=== PATIENT | female | born 1955 | race Caucasian/White ===

== ENCOUNTER → 2016-08-31 | Outpatient (CLI) | payer SELFPAY ==
--- NOTE | 2016-08-31 18:19 | Diagnostic Imaging Report ---
INDICATION: Postmenopausal bleeding. COMPARISON: None. TECHNIQUE: Transpelvic and transvaginal sonogram was performed. FINDINGS: The endometrium has significantly abnormal prominent heterogeneous appearance. There is small amount of fluid within the endometrial canal. There is suggestion of soft tissue filling defect extending into the central portion of the endometrium. Color flow images show vascularity at this area. Endometrium measures approximately 13 mm in thickness. There is suboptimal differentiation of the endometrial stripe from the surrounding myometrium as well. Remainder of the uterine myometrium also has a heterogeneous echogenic appearance. Uterus measures 7.8 cm in length by 8.9 cm transversely by 4.8 cm in AP dimension. No adnexal masses or free fluid are identified. Ovaries cannot be adequately identified on either side. IMPRESSION: 1. Significantly abnormal appearance of the endometrial stripe as described above. Findings are concerning for endometrial mass/polyp. 2. Heterogeneous appearance of the uterine myometrium. This can be seen with adenomyosis. Local invasion of malignant endometrial process however should also be considered. Surgical consultation is strongly encouraged. Dictated by: Dictated on workstation # [id number]
== END ==
LOC: RAD 16:25
PROVIDERS: ATTEND Obstetrics & Gynecology
DX: N95.0 Postmenopausal bleeding (principal)
CPT/HCPCS: 76830; 76856

== ENCOUNTER 2016-09-23 08:07 | Day surgery (SDC) | payer OTHER ==
[~2016-09-23] VITALS: Ht 167.6 cm; Wt 81.2 kg
[2016-09-23 08:30] VITALS: BP 144/67
[2016-09-23 08:41] LABS: BASOPHILS % (AUTO) 1 % (0-10); EOSINOPHILS # (AUTO) 0.2 10^3/uL (0.0-0.3); EOSINOPHILS % (AUTO) 5 % (0-10); LYMPHOCYTES # (AUTO) 1.5 X 10^3 (1.0-4.0); LYMPHOCYTES % (AUTO) 31 % (12-44); MEAN CORPUSCULAR HEMOGLOBIN 30 PG (25-34); MEAN CORPUSCULAR HGB CONC 34 G/DL (32-36); MEAN CORPUSCULAR VOLUME 88 FL (80-99); MEAN PLATELET VOLUME 8.8 FL (7.4-10.4); MONOCYTES # (AUTO) 0.3 X 10^3 (0.0-1.0); MONOCYTES % (AUTO) 6 % (0-12); NEUTROPHILS # (AUTO) 2.7 X 10^3 (1.8-7.8); NEUTROPHILS % (AUTO) 58 % (42-75); PLATELET COUNT 287 10^3/uL (130-400); RED BLOOD COUNT 4.44 10^6/uL (4.35-5.85); RED CELL DISTRIBUTION WIDTH 13.3 % (10.0-14.5); WHITE BLOOD COUNT 4.7 10^3/uL (4.3-11.0)
[2016-09-23] MEDS ORDERED: PRAM0.12 PO (09:05)
[2016-09-23] MEDS ORDERED: PSEU-137 PO (09:05)
[2016-09-23] MEDS ORDERED: SUMA100T2 PO (09:05)
[2016-09-23] MEDS ORDERED: IBUP-15 PO (09:05)
--- NOTE | 2016-09-23 09:14 | Progress Note-Pre Operative ---
Pre-Operative Progress Note H&P Reviewed The H&P was reviewed, patient examined and no changes noted. Date Seen by Provider: Sep 23, 2016 Time Seen by Provider: 09:10 Date H&P Reviewed: Sep 23, 2016 Time H&P Reviewed: 09:10 Pre-Operative Diagnosis: PMB, Atypical endometrial cells on office EMB SCOOBY VEGA DO Sep 23, 2016 9:14 am
[2016-09-23] MEDS ORDERED: LACTATED RINGERS 1,000 ML IV PRN (09:15)
[2016-09-23] MEDS ORDERED: BUPIVACAINE 0.25% 30 ML (SENSORCAINE) VIAL ONE (10:32)
[2016-09-23] MEDS ORDERED: LACTATED RINGERS 1,000 ML IV ONE (10:38)
[2016-09-23] MEDS ORDERED: fentaNYL INJECTION 100 MCG/2 ML AMP ONE (10:38)
[2016-09-23] MEDS ORDERED: proPOfol 200 MG/20 ML (DIPRIVAN) VIAL IV ONE (10:38)
[2016-09-23] MEDS ORDERED: MIDAZOLAM 2 MG/2 ML (VERSED) VIAL ONE (10:38)
[2016-09-23] MEDS ORDERED: SEVOFLURANE (ULTANE) 15 ML INHAL SOLN ONE (10:38)
[2016-09-23] MEDS ORDERED: LIDOCAINE PF 0.5% 50 ML (XYLOCAINE) VIAL ONE (10:38)
[2016-09-23] MEDS ORDERED: ONDANSETRON 4 MG/2 ML (SDV) Z0FRAN ONE (10:39)
[2016-09-23] MEDS ORDERED: DEXAMETHASONE PF 10 MG/ML (DECADRON) VIAL ONE (10:39)
[2016-09-23] MEDS ORDERED: D5 LR IV SOLUTION 1,000 ML IV SCH (11:28)
[2016-09-23] MEDS ORDERED: ONDANSETRON 4 MG/2 ML (SDV) Z0FRAN IVP PRN ×2 (11:30→11:45)
[2016-09-23] MEDS ORDERED: KETOROLAC 30 MG/ML VIAL IVP ONE (11:30)
[2016-09-23] MEDS ORDERED: IBUP-1773 PO (11:33)
[2016-09-23] MEDS ORDERED: ACET-789 PO (11:33)
--- NOTE | 2016-09-23 11:34 | Discharge Inst-Women's Service ---
Discharge Inst-Women's Serv Depart Medication/Instructions New, Converted or Re-Newed RX: RX on Chart Consults/Follow Up Additional Follow Up: Yes Orders/Referrals Dr. Vega in 7-10 days to discuss results Activity Activity: Activity as Tolerated Driving Instructions: You May Drive NO SMOKING: NO SMOKING Nothing Inside Vagina: No Douching, No [place], No Tampons Diet Discharge Diet: No Restrictions Symptoms to Report to : Bleeding Excessive, Pain Increased, Fever Over 101 Degrees F, Vaginal Bleeding Increase, Questions/Concerns For Any Problems or Questions: Contact Your Physician Skin/Wound Care Bathing Instructions: Shower (x 1 week) SCOOBY VEGA DO Sep 23, 2016 11:34
--- NOTE | 2016-09-23 11:35 | Progress Note-Post Operative ---
Post-Operative Progess Note Surgeon (s)/Workforce Investment Act Career Manager (s) Surgeon SCOOBY VEGA DO Workforce Investment Act Career Manager: none Pre-Operative Diagnosis PMB, Atypical endometrial cells on office EMB Post-Operative Diagnosis same Procedure & Operative Findings Date of Procedure 09/23/16 Procedure Performed/Findings D and C Anesthesia Type LMA-Gen Estimated Blood Loss Estimated blood loss (mL): min Specimens/Packing Specimens Removed endometrial curetting SCOOBY VEGA DO Sep 23, 2016 11:35 am
[2016-09-23] MEDS ORDERED: morphine INJ 10 MG/ML 1ML (SYR OR VIAL) IVP PRN (11:45)
[2016-09-23 12:35] VITALS: BP 124/83
[2016-09-23 13:05] VITALS: BP 124/72
[2016-09-23 13:35] VITALS: BP 127/81
[2016-09-23 14:14] VITALS: BP 127/81
--- NOTE | 2016-09-24 00:50 | OPERATIVE REPORT ---
DATE OF SERVICE: PREOPERATIVE DIAGNOSES: 1. This is a 61-year-old female with atypical cells on office endometrial biopsy, inadequate for full evaluation. 2. Postmenopausal bleeding. POSTOPERATIVE DIAGNOSES: 1. This is a 61-year-old female with atypical cells on office endometrial biopsy, inadequate for full evaluation. 2. Postmenopausal bleeding. PROCEDURE: Dilation and curettage. SURGEON: Scooby Vega DO ANESTHESIA: LMA, general. ESTIMATED BLOOD LOSS: Minimal. URINE OUTPUT: 30 mL, clear drained at the end of the procedure. CRYSTALLOIDS: 500 mL of Lactated Ringer solution. FINDINGS: Dense, thickened amount of endometrial tissue, grossly normal appearing cervix, vaginal mucosa and external female genitalia. SPECIMENS SENT: Endometrial curettings. INDICATIONS FOR PROCEDURE: This 61-year-old female was initially a consultation in my office for postmenopausal bleeding. She also was noted to have an abnormal Pap smear, underwent colposcopy with EMB. Colposcopy revealed low grade dysplasia; however, endometrial biopsy revealed significant amounts of atypical cells concerning pathology for possible underlying carcinoma. The pathologist was requesting further tissue for evaluation. I discussed this with the patient and discussed proceeding with D and C under anesthesia. The risks of this procedure discussed with the patient in detail including risks of bleeding, infection, damaging the uterus, perforation, need for blood transfusion and even . This was all reviewed with the patient in the preoperative area. After all the questions were answered, consent was obtained and the patient was taken to the operating room. OPERATIVE REPORT IN DETAIL: Once in the operating room, anesthesia was found to be adequate. She was placed in dorsal lithotomy position, prepped and draped in the normal sterile fashion. She was first examined under anesthesia. The uterus was slightly enlarged, but freely mobile. No adnexal fullness and mass was appreciated on bimanual examination. A weighted speculum was inserted into the patient's vagina. A right angle retractor was used to visualize the cervix. It was grasped at 2 o'clock position using a long Allis clamp. I then performed a paracervical block at 3 and 9 o'clock positions on the cervix using 0.25% Marcaine, 5 mL were used at each injection site. Care was taken to aspirate before injecting. I then gently sounded uterine cavity depth, was sound to be 8 cm and gently dilated the cervix using Hegar dilators to allow passage of a medium-sized endometrial curette. I then made several passes to the endometrial cavity using medium-sized endometrial curette and collected moderate to large amount of endometrial tissues, this was sent for permanent section. Afterwards, she had no active bleeding noted. All other instruments were removed from the patient's vagina. The patient tolerated the procedure well, sent to recovery room in stable condition. Lap, sponge, needle counts are correct at the end of the procedure. Instrument counts were correct as well. The bladder has been drained using a straight catheterization. Job ID: [id number] DocumentID: [id number] Dictated Date: 09/23/2016 11:42:24 Full Time Babysitter Date: 09/23/2016 23:41:50 Dictated By: SCOOBY VEGA DO
--- OUTSIDE RECORDS SUMMARY | 2016-09-27 10:35 | XMS REPORT | Continuity of Care Document ---
Author Author [facility] Organization [facility] Address Unknown Phone Unavailable Allergies Active Description Code Type Severity Reaction Onset Reported/Identified Relationship to Patient Clinical Status Yes propoxyphene [id number] Drug Allergy Moderate NAUSEA 09/23/2016 Medications Problems Date Dx Coded Attending Type Code Diagnosis Diagnosed By 09/19/2015 RANJAN DORADO DO Ot M54.2 CERVICALGIA 10/02/2015 RANJAN DORADO DO Ot M54.2 CERVICALGIA 09/03/2016 FENECH DO, SCOOYB S Ot N95.0 POSTMENOPAUSAL BLEEDING 09/03/2016 FENECH DO, SCOOBY S Ot N95.0 POSTMENOPAUSAL BLEEDING 09/09/2016 FENECH DO, SCOOBY S Ot N95.0 POSTMENOPAUSAL BLEEDING 09/22/2016 FENECH DO, SCOOBY S Ot N95.0 POSTMENOPAUSAL BLEEDING 09/22/2016 FENECH DO, SCOOBY S Ot N95.0 POSTMENOPAUSAL BLEEDING 09/23/2016 FENECH DO, SCOOBY S Ot N95.0 POSTMENOPAUSAL BLEEDING Procedures Results Test Result Range Complete blood count (CBC) with automated white blood cell (WBC) differential - 09/23/16 08:30 Blood leukocytes automated count (number/volume) 4.7 10*3/ uL 4.3-11.0 Blood erythrocytes automated count (number/volume) 4.44 10*6 /uL 4.35-5.85 Venous blood hemoglobin measurement (mass/volume) 13.2 g/dL 11.5-16.0 Blood hematocrit (volume fraction) 39 % 35-52 Automated erythrocyte mean corpuscular volume 88 [foz_us] 80-99 Automated erythrocyte mean corpuscular hemoglobin (mass per erythrocyte) 30 pg 25-34 Automated erythrocyte mean corpuscular hemoglobin concentration measurement ( mass/volume) 34 g/dL 32-36 Automated erythrocyte distribution width ratio 13.3 % 10.0-14.5 Automated blood platelet count (count/volume) 287 10*3/uL 130-400 Automated blood platelet mean volume measurement 8.8 [foz_us ] 7.4-10.4 Automated blood neutrophils/100 leukocytes 58 % 42-75 Automated blood lymphocytes/100 leukocytes 31 % 12-44 Blood monocytes/100 leukocytes 6 % 0-12 Automated blood eosinophils/100 leukocytes 5 % 0-10 Automated blood basophils/100 leukocytes 1 % 0-10 Blood neutrophils automated count (number/volume) 2.7 10*3 1.8-7.8 Blood lymphocytes automated count (number/volume) 1.5 10*3 1.0-4.0 Blood monocytes automated count (number/volume) 0.3 10*3 0.0-1.0 Automated eosinophil count 0.2 10*3/uL 0.0-0.3 Automated blood basophil count (count/volume) 0.0 10*3/uL 0.0-0.1 Blood type T Indirect antibody screen panel - 09/23/16 08:30 ABO+Rh group OP NRG Transfusion band number [id number] NRG Blood group antibody screen NEGATIVE NRG Methicillin resistant Staphylococcus aureus (MRSA) screening culture - 08:30 Methicillin resistant Staphylococcus aureus (MRSA) screening culture NEG NRG Encounters ACCT No. Visit Date/Time Discharge Status Pt. Type Provider Facility Loc./Unit Complaint [id number] 09/23/2016 08:07:00 2016 14:14:00 DIS Outpatient SCOOBY VEGA DO [facility] SDC ABNORMAL UTERINE BLEEDING, POSTMENAPAUSAL BLEEDING [id number] 09/25/2015 11:15:00 2015 09:14:00 DIS Outpatient RANJAN DORADO DO [facility] REHAB CERVICAL PAIN/SPASM W L ARM RADICULOPATHY/PAIN [id number] 09/22/2016 13:00:00 PEN Preadmit SCOOBY VEGA DO [facility] PREOP D C [id number] 08/31/2016 16:25:00 ACT Outpatient SCOOBY VEGA DO [facility] RAD POST MENOPAUSAL BLEEDING
== END 2016-09-23 14:14 | disposition home or self-care (01) ==
LOC: SDC 08:07
PROVIDERS: ATTEND Obstetrics & Gynecology
DX: C54.1 Malignant neoplasm of endometrium (principal); N95.0 Postmenopausal bleeding
CPT/HCPCS: 36415; 85025; 86850; 86900; 86901; 87081; 94664

== ENCOUNTER 2017-04-11 18:23 | Emergency (ER) | payer MEDICAID, OTHER ==
[~2017-04-11] VITALS: Ht 167.6 cm; Wt 81.6 kg
[~2017-04-11 18:23] MED LIST: ACET-789 PO; IBUP-16 PO; IBUP-1773 PO; PRAM0.12 PO; PSEU-137 PO; SUMA100T2 PO
--- NOTE | 2017-04-11 19:13 | ED EENT ---
History of Present Illness General Chief Complaint: Ear Problems Stated Complaint: RT EAR PAIN Source: patient Exam Limitations: no limitations History of Present Illness Time seen by provider: 19:11 Initial Comments To ER with right ear pain that radiates into the right neck. This began a few days ago. She saw [facility] this morning and was given a prescription for Neosporin ear drops and amoxicillin. However she rates her pain at 9-1/2 out of 10 in the right ear and she was not given anything for pain. She just had her second round of chemotherapy for uterine cancer. 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 Timing/Duration: this morning Severity: moderate Location: ear (R) Allergies and Home Medications Allergies Coded Allergies: propoxyphene (Verified Adverse Reaction, Intermediate, NAUSEA, 09/23/16) Home Medications Acetaminophen with Codeine 1 Each Tablet, 1 EACH PO Q4H PRN for PAIN-SEVERE, #30 Prescribed by: SCOOBY VEGA on 09/23/16 1133 Amoxicillin/Potassium Clav 1 Each Tablet, 1 EACH PO BID, #20 Prescribed by: JUDITH CAIN on 04/11/17 195 Ibuprofen 600 Mg Tablet, 600 MG PO Q6H, #60 Ref 0 Prescribed by: SCOOBY VEGA on 09/23/16 1133 Ofloxacin 10 Ml Drops, 10 DROPS OT BID for 7 Days Prescribed by: JUDITH CAIN on 04/11/17 194 Oxycodone HCl/Acetaminophen 1 Each Tablet, 1 EACH PO Q4H PRN for PAIN-MODERATE, #30 Prescribed by: JUDITH CAIN on 04/11/171955 Pramipexole 0.125 Mg Tablet, 0.125 MG PO HS, (Reported) Pseudoephedrine HCl 30 Mg Tablet, 60 MG PO DAILY, (Reported) Sumatriptan Succinate 100 Mg Tablet, 100 MG PO PRN, (Reported) Review of Systems Constitutional: see HPI Eyes: No Symptoms Reported Ears: See HPI, Pain, Denies Tinnitus, Denies Bloody Discharge, Denies Clear Discharge, Denies Purulent Discharge Nose: no symptoms reported Mouth: no symptoms reported Throat: no symptoms reported Respiratory: no symptoms reported Cardiovascular: no symptoms reported Musculoskeletal: no symptoms reported Skin: no symptoms reported Neurological: No Symptoms Reported Hematologic/Lymphatic: No Symptoms Reported Immunological/Allergic: no symptoms reported Past Elahvaj-Vlnkta-Tuvzeo Hx Patient Social History Alcohol Beverage of Choice: Wine Recent Foreign Travel: No Contact w/Someone Who Travel: No Recent Hopitalizations: No Seasonal Allergies Seasonal Allergies: Yes Surgeries Surgeries: Appendectomy, Section, Gallbladder, Tonsillectomy Reproductive System Hx Reproductive Disorders: Yes Sexually Transmitted Disease: No HIV/AIDS: No Female Reproductive Disorders: Menstrual Problems DIRECTOR OPERATIONS History: Menopausal Physical Exam Vital Signs Vital Sign - Last 12Hours 04/11/17 19:07 Temp 99.0 Pulse 102 Resp 20 B/P (MAP) 142/80 (100) Pulse Ox 98 O2 Delivery Room Air General Appearance: WD/WN, no apparent distress Eyes: bilateral eye normal inspection, bilateral eye PERRL, bilateral eye EOMI Ears: bilateral ear auricle normal, bilateral ear other (there appears to be cerumen impacted against the right tympanic membrane. The external ear canal is very tender but without drainage or obvious swelling. There is no rash to the external neck. Because she is immunosuppressed I will put her on quinolone eardrops to cover for pseudomonas infection. Ultram for pain control. Her right pupil is about 1-2 mm larger than her left. She denies any history of this before. I will proceed with a CT scan of the head because she does report intermittent headaches. There is no tenderness to palpation over the mastoid process nor is there any fluctuance or erythema) Mouth/Throat: normal mouth inspection, pharynx normal Neck: non-tender, full range of motion Cardiovascular: regular rate, rhythm, no murmur Respiratory: normal breath sounds, no respiratory distress Gastrointestinal: normal bowel sounds, non tender, soft Neurologic/Psychiatric: alert, normal mood/affect, oriented x 3 Skin: normal color, warm/dry Progress/Results/Core Measures Results/Orders My Orders Orders - JUDITH CAIN APRN Ct Head Wo (04/11/17 19:11) Tramadol Tablet (Ultram Tablet) (04/11/17 19:15) Acyclovir Capsule/Tablet (Zovirax Caps (04/11/17 19:45) Medications Given in ED Current Medications Medications Dose Ordered Sig/Mary Route Start Time Stop Time Status Last Admin Dose Admin Tramadol HCl 50 mg ONCE ONCE PO 04/11/17 19:15 04/11/17 19:16 DC 04/11/17 19:16 50 MG Vital Signs/I&O Vital Sign - Last 12Hours 04/11/17 19:07 Temp 99.0 Pulse 102 Resp 20 B/P (MAP) 142/80 (100) Pulse Ox 98 O2 Delivery Room Air Diagnostic Imaging Diagonstic Imaging: CT Comments NAME: JAMIR [facility]SON [facility] REC#: [id number] PT STATUS: REG ER : 1955 PHYSICIAN: JUDITH CAIN INTELLIGENCE AGENT ADMIT DATE: 04/11/17/ER Signed Date of Exam:04/11/17 CT HEAD WO PROCEDURE: CT head without contrast. TECHNIQUE: Multiple contiguous axial images were obtained through the brain without the use of intravenous contrast. INDICATION: Right ear pain with recent diagnosis of swimmer's ear. No comparison is available. FINDINGS: There is no CT evidence of acute intracranial hemorrhage. There is no intracranial mass effect or shift. There is no hydrocephalus. There is no abnormal extra-axial fluid collection. Lott-white differentiations are preserved. Posterior fossa unremarkable. Thin section imaging through the calvarium and temporal bones demonstrates abnormal partial opacification of the right-sided mastoids and abnormal density demonstrated within the middle ear predominantly within the hypotympanum. There also appears to be some soft tissue thickening within the bony aspect of the right external auditory canal. The morphology of the inner ear structures appear normal. The left temporal bone is normal. The left mastoids and middle ear are clear. Paranasal sinuses are remarkable for chronic appearing sinusitis within the right sphenoid sinus. The sinuses completely opacified. The orbital contents unremarkable. IMPRESSION: 1. No CT evidence of an acute intracranial abnormality. 2. Abnormal appearance of the right temporal bone. There are partially opacified right-sided mastoids. There is abnormal opacification demonstrated of the middle ear. There also appears to be some soft tissue thickening within the external auditory canal. While the external auditory canal findings could relate to swimmer's ear, the abnormality within the middle ear and mastoids is more suspect for an otitis. There are no bone erosions evident to suggest cholesteatoma. 3. Chronic right sphenoid sinusitis. Dictated by: Dictated on workstation # [id number] Dict: 04/11/171935 Trans: 04/11/17 1947 SARAH [id number] Interpreted by: IMER BROWER MD Electronically signed by: IMER BROWER MD 04/11/171946 Departure Communication (Admissions) Progress Notes Did speak with Vinayak Knox nurse practitioner with Dr. Pierre from ear nose and throat. My question was in regards to any different preference of antibiotics given her immunosuppressed status. She would change to Augmentin, continue the eardrops follow-up with them in the clinic. 2011 in regards to the pupillary dilation patient reports that she actually had a scopolamine patch on behind the right ear and took this off just before coming to the ER.- Impression Impression: Primary Impression: Otitis externa Additional Impression: Immunosuppressed due to chemotherapy Disposition: HOME, SELF-CARE Condition: Stable Departure-Patient Inst. Decision time for Depature: 19:18 Referrals: SCOOBY PIERRE MD NO,LOCAL PHYSICIAN (PCP) Primary Care Physician Patient Instructions: Outer Ear Infection (DC) Add. Discharge Instructions: Stop your current ear drops and antibiotics and start the new ones. Call Dr. Pierre's clinic tomorrow to make an appointment to be seen. Scripts Oxycodone HCl/Acetaminophen (Percocet 5-325 mg Tablet) 1 Each Tablet 1 EACH PO Q4H Y for PAIN-MODERATE, #30 TAB Prov: JUDITH CAIN INTELLIGENCE AGENT 04/11/17 Amoxicillin/Potassium Clav (Augmentin 875-125 Tablet) 1 Each Tablet 1 EACH PO BID, #20 TAB Prov: JUDITH CAIN APRN 04/11/17 Ofloxacin (Floxin) 10 Ml Drops 10 DROPS OT BID for 7 Days, DROPS Prov: JUDITH CAIN APRN 04/11/17 Copy Copies To 1: SCOOBY PIERRE MD, PETER J APRN Apr 11, 2017 19:13
[2017-04-11] MEDS ORDERED: OFLO10DR24 OT (19:43)
[2017-04-11] MEDS ORDERED: ACYC800T PO (19:43)
[2017-04-11] MEDS ORDERED: ACYCLOVIR 400 MG TABLET (ZOVIRAX) PO SCH (19:45)
--- NOTE | 2017-04-11 19:46 | Diagnostic Imaging Report ---
PROCEDURE: CT head without contrast. TECHNIQUE: Multiple contiguous axial images were obtained through the brain without the use of intravenous contrast. INDICATION: Right ear pain with recent diagnosis of swimmer's ear. No comparison is available. FINDINGS: There is no CT evidence of acute intracranial hemorrhage. There is no intracranial mass effect or shift. There is no hydrocephalus. There is no abnormal extra-axial fluid collection. Lott-white differentiations are preserved. Posterior fossa unremarkable. Thin section imaging through the calvarium and temporal bones demonstrates abnormal partial opacification of the right-sided mastoids and abnormal density demonstrated within the middle ear predominantly within the hypotympanum. There also appears to be some soft tissue thickening within the bony aspect of the right external auditory canal. The morphology of the inner ear structures appear normal. The left temporal bone is normal. The left mastoids and middle ear are clear. Paranasal sinuses are remarkable for chronic appearing sinusitis within the right sphenoid sinus. The sinuses completely opacified. The orbital contents unremarkable. IMPRESSION: 1. No CT evidence of an acute intracranial abnormality. 2. Abnormal appearance of the right temporal bone. There are partially opacified right-sided mastoids. There is abnormal opacification demonstrated of the middle ear. There also appears to be some soft tissue thickening within the external auditory canal. While the external auditory canal findings could relate to swimmer's ear, the abnormality within the middle ear and mastoids is more suspect for an otitis. There are no bone erosions evident to suggest cholesteatoma. 3. Chronic right sphenoid sinusitis. Dictated by: Dictated on workstation # [id number]
[2017-04-11] MEDS ORDERED: OXYC-197 PO (19:56)
[2017-04-11] MEDS ORDERED: AMOX-358 PO (19:56)
[2017-04-11 20:15] VITALS: BP 142/80
[2017-04-11] MEDS ORDERED: KETOROLAC 60 MG/2 ML VIAL IM ONE (20:15)
== END 2017-04-11 20:15 | disposition home or self-care (01) ==
LOC: EDUNIT# 18:23 → ER 18:25
DX: D84.9 Immunodeficiency, unspecified (principal); T45.1X5A Adverse effect of antineoplastic and immunosuppressive drugs, initial encounter; C54.1 Malignant neoplasm of endometrium; H60.91 Unspecified otitis externa, right ear; Z90.49 Acquired absence of other specified parts of digestive tract; Z87.59 Personal history of other complications of pregnancy, childbirth and the puerperium; Z90.89 Acquired absence of other organs
CPT/HCPCS: 70450; 96372; 99283

== ENCOUNTER 2017-09-06 09:43 | Emergency (ER) | payer MEDICAID ==
[~2017-09-06] VITALS: Ht 167.6 cm; Wt 70.8 kg
[~2017-09-06 09:43] MED LIST changes: +ACYC800T PO; +AMOX-358 PO; +OFLO10DR24 OT; +OXYC-197 PO
--- OUTSIDE RECORDS SUMMARY | 2017-09-06 10:02 | XMS REPORT | Referral Summary ---
Author Author [facility] Organization [facility] Address Unknown Phone Unavailable Care Team Providers Care Logging Worker Name Role Phone Ramesh Hopkins PCP Encounter VC Date(s): 01/17/17 - 01/17/17 [facility] [address] [place] [address]- Discharge Diagnosis: Dysfunction of right Eustachian tube Discharge Disposition: 01-Home or Self Care Attending Physician: Jerilyn Valverde PA-C Admitting Physician: Jerilyn Valverde PA-C Vital Signs Most recent to 1 oldest [Reference Range]: Temperature Oral 37.0 degC [35.8-37.3 degC] (01/17/17 10:03 AM) Peripheral Pulse 88 bpm Rate [60-100 bpm] (01/17/17 10:03 AM) Blood Pressure 116/72 mmHg [90-140/60-90 mmHg] (01/17/17 10:03 AM) SpO2 99 % (01/17/17 10:03 AM) Problem List Condition Effective Dates Status Health Status Informant Acute Active pain(Confirmed) Alteration in Active nutrition(Confirmed) 1 Fluid Active imbalance(Confirmed) 2 Uterine Active patient cancer(Confirmed) 1Problem added automatically by system based on initiation of Alteration in Nutrition Plan of Care 2Problem added automatically by system based on initiation of Fluid Volume Imbalance Plan of Care Allergies, Adverse Reactions, Alerts Substance Reaction Severity Status Compazine Active Darvon Vomiting Severe Active Medications acetaminophen 1,000 mg, Oral, q6hr, as needed for pain, 0 Refill(s) Start Date: 11/17/16 Status: Ordered ALPRAZolam 0.25 mg, Oral, Once, as needed for anxiety, 0 Refill(s) Start Date: 11/17/16 Status: Ordered Colace 100 mg, Oral, BID, 0 Refill(s) Start Date: 11/17/16 Status: Ordered hydrocortisone 2.5% rectal cream with applicator 1 eliot, Rectal, BID, # 30 g, 0 Refill(s), Pharmacy: [id number] Start Date: 12/20/16 Status: Ordered ibuprofen 600 mg, Oral, q6hr, as needed for pain, 0 Refill(s) Start Date: 11/17/16 Status: Ordered Imitrex Once, 0 Refill(s) Start Date: 11/22/16 Status: Ordered Mirapex 1 mg, Oral, Bedtime (once a day), 0 Refill(s) Start Date: 11/17/16 Status: Ordered Pepcid 20 mg, Oral, BID, 0 Refill(s) Start Date: 11/17/16 Status: Ordered SudoGest 60 mg, Oral, Daily, 0 Refill(s) Start Date: 11/17/16 Status: Ordered Transderm-Scop 1.5 mg transdermal film, extended release 1.5 mg 1 patches, Topical, q72hr, as needed for motion sickness, # 4 Each, 0 Refill(s) Start Date: 11/17/16 Status: Ordered Results No data available for this section Immunizations Given and Recorded Vaccine Date Status Refusal Reason influenza virus vaccine, inactivated 01/17/17 Given Procedures Procedure Date Related Diagnosis Body Site Appendectomy delivery Cholecystectomy Hernia repair Tonsillectomy Social History Social History Type Response Smoking Status Never smoker entered on: 11/17/16 Assessment and Plan Extracted from: Title: Office Visit Note Author: Jerilyn Valverde PA-C Date: 01/17/17 1.Dysfunction of right Eustachian tube Tympanogram completed confirming eustachian tube dysfunction. Will do trial of Dymista x 2 weeks, samples given. Continue with Zyrtec/Sudafed. If no improvement after daily Dymista x 2 weeks will refer to ENT forfurther workup/treatment.
--- OUTSIDE RECORDS SUMMARY | 2017-09-06 10:03 | XMS REPORT | Referral Summary ---
Author Author [facility] Organization [facility] Address Unknown Phone Unavailable Care Team Providers Care Assembler Golf Wood Head Name Role Phone Ramesh Hopkins PCP Encounter Date(s): 11/22/16 - 11/22/16 [facility] [address] [place] [address]- Discharge Diagnosis: Hemorrhoid Discharge Diagnosis: Abnormal renal function Discharge Diagnosis: Diarrhea Discharge Diagnosis: Sarcoma Discharge Disposition: 01-Home or Self Care Attending Physician: Jerilyn Valverde PA-C Admitting Physician: Jerilyn Valverde PA-C Vital Signs Most recent to 1 oldest [Reference Range]: Peripheral Pulse 96 bpm Rate [60-100 bpm] (11/22/16 10:30 AM) Blood Pressure 126/82 mmHg [90-140/60-90 mmHg] (11/22/16 10:30 AM) SpO2 98 % (11/22/16 10:30 AM) Problem List Condition Effective Dates Status [...] 0 Refill(s) Start Date: 11/17/16 Status: Ordered ibuprofen 600 mg, Oral, q6hr, [...] Refill(s) Start Date: 11/17/16 Status: Ordered Results Hematology Most recent to 1 oldest [Reference Range]: WBC [4.8-10.8 2.1 10*3/uL 10*3/uL] *LOW* (11/22/16 12:34 PM) RBC [4.00-5.20] 3.30 *LOW* (11/22/16 12:34 PM) Hgb [12.0-16.0 8.9 gm/dL gm/dL] *LOW* (11/22/16 12:34 PM) Hct [37.0-47.0 %] 27.9 % *LOW* (11/22/16 12:34 PM) MCV [82.0-99.0 fL] 84.5 fL (11/22/16 12:34 PM) MCH [27.0-32.0 pg] 27.0 pg (11/22/16 12:34 PM) MCHC [32.0-36.0 31.9 gm/dL gm/dL] *LOW* (11/22/16 12:34 PM) RDW [11.5-14.5 %] 14.4 % (11/22/16 12:34 PM) Platelet [150-400 426 10*3/uL 10*3/uL] *HI* (11/22/16 12:34 PM) MPV [8.8-14.8 fL] 8.4 fL *LOW* (11/22/16:34 PM) Immature 0.5 % Granulocytes (11/22/1634 PM) [0.0-1.0 %] Neutrophils [51-75 62 % %] (11/22/1634 PM) Lymphocytes [20-46 16 % %] *LOW* (11/22/16 PM) Monocytes [4-11 %] 5 % (11/22/1634 PM) Eosinophils [0-4 %] 16 % *HI* (11/22/1634 PM) Basophils [0-2 %] 0 % (11/22/16 PM) Neutro Absolute 1.29 [1.90-7.00] *LOW* (11/22/16 PM) Lymph Absolute 0.34 [0.80-3.30] *LOW* (11/22/16 PM) [place] Absolute 0.11 [0.30-1.00] *LOW* (11/22/16 PM) Eos Absolute 0.32 [0.00-0.50] (11/22/1634 PM) Baso Absolute 0.00 [0.00-0.20] (11/22/16 PM) Chemistry Most recent to 1 oldest [Reference Range]: Sodium Lvl [135-144 137 mEq/L mEq/L] (11/22/1634 PM) Potassium Lvl 3.6 mEq/L [3.5-5.2 mEq/L] (11/22/1634 PM) Chloride [99-111 102 mEq/L mEq/L] (11/22/1634 PM) CO2 [22-31 mEq/L] 25 mEq/L (11/22/1634 PM) AGAP [3-20 mEq/L] 10 mEq/L (11/22/1634 PM) BUN [10-20 mg/dL] 24 mg/dL *HI* (11/22/16:34 PM) Glucose Lvl [70-99 105 mg/dL mg/dL] *HI* (11/22/1634 PM) Creatinine Lvl 1.07 mg/dL [0.57-1.11 mg/dL] (11/22/16 12:34 PM) eGFR [>60 mL/min] 52 mL/min 1 *ABN* (11/22/16 12:34 PM) Calcium Lvl 8.1 mg/dL [8.4-10.2 mg/dL] *LOW* (11/22/16 12:34 PM) Albumin Lvl [3.5-5.0 2.8 gm/dL gm/dL] *LOW* (11/22/16 12:34 PM) Total Protein 5.1 gm/dL [6.0-7.6 gm/dL] *LOW* (11/22/16 12:34 PM) Globulin [1.8-4.0 2.3 gm/dL gm/dL] (11/22/16 12:34 PM) ALT [0-55 U/L] 22 U/L (11/22/16 12:34 PM) AST [5-34 U/L] 71 U/L *HI* (11/22/16 12:34 PM) Alk Phos [40-150 89 U/L U/L] (11/22/16 12:34 PM) Bili Total [0.2-1.2 0.3 mg/dL mg/dL] (11/22/16 12:34 PM) 1Result Comment: Multiply eGFR results by 1.21 for race. Immunizations No data available for this section Procedures Procedure Date Related Diagnosis Body Site Collection of venous blood by venipuncture 11/22/16 Appendectomy delivery Cholecystectomy Hernia repair Tonsillectomy Social History Social History Type Response Smoking Status Never smoker Assessment and Plan Extracted from: Title: Office Visit Note Author: Jerilyn Valverde PA-C Date: 11/22/16 1.Diarrhea Discussed using Imodium to help bulk stools, this is likely a side effect of chemotherapy. Will also plan to touch base with oncologist to ensure they are ok with use of this medication. No renal dosing necessary. 2.Hemorrhoid Samples of Analpram given to patient, if work well will plan to send out Rx. 3.Abnormal renal function Check CMP today, plan as indicated. Will also check CBC per Dr. Villalobos orders.
--- OUTSIDE RECORDS SUMMARY | 2017-09-06 10:03 | XMS REPORT | Referral Summary ---
Author Author [facility] Organization [facility] Address Unknown Phone Unavailable Care Team Providers Care Mortgage Field Inspector Name Role Phone Ramesh Hopkins PCP Encounter [facility] Date(s): 11/17/16 - 11/18/16 [facility] [address] [place] [address] Discharge Disposition: 01-Home or Self Care Attending Physician: Indra Boudreaux MD Admitting Physician: Indra Boudreaux MD Vital Signs Most recent to 1 oldest [Reference Range]: Temperature Oral 36.4 degC [35.8-37.3 degC] (11/18/16 10:00 AM) Peripheral Pulse 113 bpm Rate [60-100 bpm] *HI* (11/18/16 4:00 AM) Heart Rate Monitored 111 bpm [60-100 bpm] *HI* (11/18/16 9:15 AM) Respiratory Rate 18 br/min [14-20 br/min] (11/18/16 9:15 AM) Blood Pressure 115/66 mmHg [90-140/60-90 mmHg] (11/18/16 9:15 AM) Mean Arterial 78 mmHg Pressure, Cuff (11/17/16 3:00 PM) SpO2 96 % (11/18/16 9:15 AM) Remote Telemetry Discontinued (11/18/16 10:55 AM) Problem List Condition Effective Dates Status [...] 0 Refill(s) Start Date: 11/17/16 Status: Ordered Mirapex 1 mg, Oral, Bedtime (once a day), 0 Refill(s) Start Date: 11/17/16 Status: Ordered Pepcid 20 mg, Oral, BID, 0 Refill(s) Start Date: 11/17/16 Status: Ordered prochlorperazine 10 mg, Oral, q6hr, as needed for nausea/vomiting, 0 Refill(s) Start Date: 11/17/16 Status: Ordered SudoGest 60 mg, Oral, Daily, 0 Refill(s) Start Date: 11/17/16 Status: Ordered Transderm-Scop 1.5 mg transdermal film, extended release 1.5 mg 1 patches, Topical, q72hr, as needed for motion sickness, # 4 Each, 0 Refill(s) Start Date: 11/17/16 Status: Ordered Results Hematology Most recent to 1 oldest [Reference Range]: WBC [4.8-10.8 7.9 10*3/uL 10*3/uL] (11/18/16 4:23 AM) RBC [4.00-5.20] 3.27 *LOW* (11/18/16 4:23 AM) Hgb [12.0-16.0 8.9 gm/dL gm/dL] *LOW* (11/18/16 4:23 AM) Hct [37.0-47.0 %] 27.2 % *LOW* (11/18/16 4:23 AM) MCV [82.0-99.0 fL] 83.2 fL (11/18/16 4:23 AM) MCH [27.0-32.0 pg] 27.2 pg (11/18/16 4:23 AM) MCHC [32.0-36.0 32.7 gm/dL gm/dL] (11/18/16 4:23 AM) RDW [11.5-14.5 %] 14.5 % (11/18/16 4:23 AM) Platelet [150-400 547 10*3/uL 10*3/uL] *HI* (11/18/16 4:23 AM) MPV [9.4-12.4 fL] 8.3 fL *LOW* (11/18/16 4:23 AM) Immature 0.5 % Granulocytes (11/18/16 4:23 AM) [0.0-1.0 %] Neutrophils [51-75 90 % %] *HI* (11/18/16 4:23 AM) Lymphocytes [20-46 4 % %] *LOW* (11/18/16 4:23 AM) Monocytes [4-11 %] 1 % *LOW* (11/18/16 4:23 AM) Eosinophils [0-4 %] 5 % *HI* (11/18/16 4:23 AM) Basophils [0-2 %] 0 % (11/18/16 4:23 AM) Neutro Absolute 7.08 [1.90-7.00] *HI* (11/18/16 4:23 AM) Lymph Absolute 0.32 [0.80-3.30] *LOW* (11/18/16 4:23 AM) [place] Absolute 0.05 [0.30-1.00] *LOW* (11/18/16 4:23 AM) Eos Absolute 0.40 [0.00-0.50] (11/18/16 4:23 AM) Baso Absolute 0.01 [0.00-0.20] (11/18/16 4:23 AM) Nucleated RBC 0.0 /100 WBC Automated [0 /100 (11/18/16 4:23 AM) WBC] Differential Manual *ABN* (11/17/16 12:09 PM) Coagulation Most recent to 1 oldest [Reference Range]: INR [0.9-1.2] 1.1 (11/18/16 4:23 AM) PTT [25.0-35.0 26.8 seconds seconds] (11/18/16 4:23 AM) Chemistry Most recent to 1 oldest [Reference Range]: Sodium Lvl [136-144 129 mEq/L mEq/L] *LOW* (11/18/16 4:23 AM) Potassium Lvl 3.9 mEq/L [3.6-5.1 mEq/L] (11/18/16 4:23 AM) Chloride [99-109 100 mEq/L mEq/L] (11/18/16 4:23 AM) CO2 [22-32 mEq/L] 19 mEq/L *LOW* (11/18/16 4:23 AM) AGAP [3-20 mEq/L] 10 mEq/L (11/18/16 4:23 AM) BUN [4-20 mg/dL] 68 mg/dL *HI* (11/18/16 4:23 AM) Glucose Lvl [70-100 114 mg/dL mg/dL] *HI* (11/18/16 4:23 AM) Creatinine Lvl 2.22 mg/dL [0.44-1.03 mg/dL] *HI* (11/18/16 4:23 AM) eGFR [>60 mL/min] 23 mL/min 1 *ABN* (11/18/16 4:23 AM) Calcium Lvl 7.2 mg/dL [8.6-10.0 mg/dL] *LOW* (11/18/16 4:23 AM) Albumin Lvl [3.5-4.8 2.0 gm/dL gm/dL] *LOW* (11/17/16 12:09 PM) Total Protein 5.0 gm/dL [6.1-7.9 gm/dL] *LOW* (11/17/16 12:09 PM) Globulin [1.9-4.3 3.0 gm/dL gm/dL] (11/17/16 12:09 PM) ALT [14-54 U/L] 30 U/L (11/17/16 12:09 PM) AST [15-41 U/L] 99 U/L *HI* (11/17/16 12:09 PM) Alk Phos [26-104 93 U/L U/L] (11/17/16 12:09 PM) Bili Total [0.2-1.2 0.8 mg/dL 2 mg/dL] (11/17/16 12:09 PM) Lipase Lvl [8-48 118 U/L U/L] *HI* (11/17/16 12:09 PM) Lactic Acid-POC 1.6 mEq/L [0.5-2.2 mEq/L] (11/17/16 12:12 PM) Procalcitonin 2.79 ng/mL 3 [0.00-0.09 ng/mL] *HI* (11/17/16 12:09 PM) 1Result Comment: Multiply eGFR results by 1.21 for race. 2Result Comment: Naproxen, specifically the metabolite O-desmethylnaproxen, may cause spurious elevation in Total Bilirubin levels. 3Result Comment: Normal: <0.1 ng/mL (infants >72 hrs - adults) Suspected Lower Respiratory Tract Infection 0.10-0.25 ng/mL=Low likelihood for bacterial infection; Antibiotics discouraged. >0.25 ng/mL=Increased likelihood for bacterial infection; Antibiotics encouraged. Suspected Sepsis: Strongly consider initiating antibiotics in all unstable patients. 0.10-0.50 ng/mL=Low likelihood for sepsis; Antibiotics discouraged. >0.50 ng/mL=Increased likelihood for sepsis; Antibiotics encouraged. Decisions on antibiotic use should not be based solely on procalcitonin levels. If antibiotics are administered, repeat procalcitonin testing should be obtained every 2-3 days to consider early antibiotic cessation. PCT is a dynamic biomarker and most useful when trends are analyzed over time in accompaniment with other clinical data. Interpretation should be based upon clinical context and algorithms. Urinalysis Most recent to 1 oldest [Reference Range]: UA Color Yellow (11/17/16 3:29 PM) UA Appear Cloudy *ABN* (11/17/16 3:29 PM) UA pH [5.0-8.0] 5.0 (11/17/16 3:29 PM) UA Leuk Est Negative [Negative] (11/17/16 3:29 PM) UA Nitrite Negative [Negative] (11/17/16 3:29 PM) UA Protein Pos 2+ [Negative] *ABN* (11/17/16 3:29 PM) UA Glucose Negative [Negative] (11/17/16 3:29 PM) UA Ketones Negative [Negative] (11/17/16 3:29 PM) UA Urobilinogen Negative [<1.0] (11/17/16 3:29 PM) UA Bili [Negative] Negative (11/17/16 3:29 PM) UA Blood [Negative] Pos 2+ *ABN* (11/17/16 3:29 PM) UA Spec Grav 1.020 [1.003-1.030] (11/17/16 3:29 PM) Type Catheter (11/17/16 3:29 PM) UA WBC [0-4] 10-20 *ABN* (11/17/16 3:29 PM) UA RBC [0-2] 2-5 (11/17/16 3:29 PM) Epithelial Cells 5-10 (11/17/16 3:29 PM) UA Bacteria Numerous *ABN* (11/17/16 3:29 PM) Crystals Uric Acid (11/17/16 3:29 PM) UA Hyal Cast [0-3] 4-6 *ABN* (11/17/16 3:29 PM) UA Gran Cast 1-3 *ABN* (11/17/16 3:29 PM) UA Mucous Present (11/17/16 3:29 PM) Microbiology Reports TEST: Fluid Culture and Smear STATUS: Order in Progress BODY SITE: Abdomen SOURCE: Peritoneal Fluid COLLECTED DATE/TIME: 11/17/16 6:33 PM Gram Smear Few (1-5/OIF) white blood cells No microorganisms observed OIF=Oil Immersion Field LPF=Low Power Field TEST: Respiratory Virus Panel - PCR STATUS: Auth (Verified) BODY SITE: SOURCE: Nasopharyngeal Swab COLLECTED DATE/TIME: 11/17/16 5:51 PM Respiratory Virus Panel - PCR Negative for all strains tested. . Specimen tested for the following FDA approved viral targets: Influenza A, Influenza A subtype H1, Influenza A subtype H3, Influenza A 2009 H1N1, Influenza B, Respiratory Syncytial Virus subtype A, Respiratory Syncytial Virus subtype B, Adenovirus B/E, Adenovirus C, Rhinovirus, Parainfluenza virus 1, Parainfluenza virus 2, Parainfluenza virus 3, and Human Metapneumovirus. . The following viral targets were also tested. Although not FDA approved, these targets have been validated by our laboratory for clinical diagnosis: Parainfluenza virus 4, Coronavirus 229E, Coronavirus NL63, Coronavirus HKU1, and Coronavirus OC43. TEST: Blood Culture STATUS: Order in Progress BODY SITE: SOURCE: Blood COLLECTED DATE/TIME: 11/17/16 2:48 PM Blood Culture No growth after 12 hours incubation. Nursing unit/client will be called if growth is detected. - TEST: Blood Culture STATUS: Order in Progress BODY SITE: SOURCE: Blood COLLECTED DATE/TIME: 11/17/16 2:48 PM Blood Culture No growth after 12 hours incubation. Nursing unit/client will be called if growth is detected. - TEST: Urine Culture STATUS: Auth (Verified) BODY SITE: SOURCE: Urine COLLECTED DATE/TIME: 11/17/16 12:09 PM Urine Culture Low counts of multiple isolates. No further workup will be performed on this culture. Immunizations No data available for this section Procedures Procedure Date Related Diagnosis Body Site Abdominal paracentesis (diagnostic or 11/18/16 therapeutic); with imaging guidance Appendectomy delivery Cholecystectomy Hernia repair Tonsillectomy Social History Social History Type Response Smoking Status Never smoker Assessment and Plan No data available for this section
--- OUTSIDE RECORDS SUMMARY | 2017-09-06 10:03 | XMS REPORT | Referral Summary ---
Author Author [facility] Organization [facility] Address Unknown Phone Unavailable Care Team Providers Care Radio Division Captain Name Role Phone Ramesh Hopkins PCP Encounter Date(s): 01/22/17 - 01/22/17 [facility] [address] [place] [address] [facility] Discharge Diagnosis: Uterine cancer Discharge Diagnosis: Acute cystitis Discharge Diagnosis: Dysuria Discharge Disposition: -Home or Self Care Attending Physician: Stefanie Peng APRN Attending Physician: Provider, Immediate Care Admitting Physician: Provider, Immediate Care Vital Signs Most recent to 1 oldest [Reference Range]: Temperature Oral 37 degC [35.8-37.3 degC] (01/22/17 12:27 PM) Peripheral Pulse 110 bpm Rate [60-100 bpm] *HI* (01/22/17 12:27 PM) Blood Pressure 120/70 mmHg [90-140/60-90 mmHg] (01/22/17 12:27 PM) SpO2 99 % (01/22/17 12:27 PM) Problem List Condition Effective Dates Status Health Status Informant Acute Active pain(Confirmed) Alteration in Active nutrition(Confirmed) 1 Fluid Active imbalance(Confirmed) 2 Uterine Active patient cancer(Confirmed) 1Problem added automatically by system based on initiation of Alteration in Nutrition Plan of Care 2Problem added automatically by system based on initiation of Fluid Volume Imbalance Plan of Care Allergies, Adverse Reactions, Alerts Substance Reaction Severity Status gabapentin nightmares Active Compazine Active Darvon Vomiting Severe Active Medications acetaminophen 1,000 mg, Oral, q6hr, as needed for pain, 0 Refill(s) Start Date: 11/17/16 Status: Ordered ALPRAZolam 0.25 mg, Oral, Once, as needed for anxiety, 0 Refill(s) Start Date: 11/17/16 Status: Ordered Cipro 500 mg oral tablet 500 mg 1 tabs, Oral, q12hr, X 7 days, # 14 tabs, 0 Refill(s), Pharmacy: [id number], 1 tabs Oral q12hr,x7 days Start Date: 01/22/17 Stop Date: 01/29/17 Status: Ordered Colace 100 mg, Oral, BID, 0 Refill(s) Start Date: 11/17/16 Status: Ordered dexamethasone Day before, day of and day after chemo treatments., 0 Refill(s) Start Date: 01/22/17 Status: Ordered hydrocortisone 2.5% rectal cream with applicator 1 eliot, Rectal, BID, # 30 g, 0 Refill(s), Pharmacy: [id number] Start Date: 12/20/16 Status: Ordered ibuprofen 600 mg, Oral, q6hr, as needed for pain, 0 Refill(s) Start Date: 11/17/16 Status: Ordered Imitrex Once, 0 Refill(s) Start Date: 11/22/16 Status: Ordered Mirapex 1 mg, Oral, Bedtime (once a day), 0 Refill(s) Start Date: 11/17/16 Status: Ordered Pepcid 20 mg, Oral, BID, 0 Refill(s) Start Date: 11/17/16 Status: Ordered potassium chloride 40 mEq/15 mL oral liquid mEq mL, Oral, Daily, 0 Refill(s) Start Date: 01/22/17 Status: Ordered SudoGest 60 mg, Oral, Daily, 0 Refill(s) Start Date: 11/17/16 Status: Ordered Transderm-Scop 1.5 mg transdermal film, extended release 1.5 mg 1 patches, Topical, q72hr, as needed for motion sickness, # 4 Each, 0 Refill(s) Start Date: 11/17/16 Status: Ordered Results Hematology Most recent to 1 oldest [Reference Range]: WBC [4.8-10.8 2.8 10*3/uL 10*3/uL] *LOW* (01/22/17 1:09 PM) RBC [4.00-5.20] 3.12 *LOW* (01/22/17 1:09 PM) Hgb [12.0-16.0 8.9 gm/dL gm/dL] *LOW* (01/22/17 1:09 PM) Hct [37.0-47.0 %] 28.7 % *LOW* (01/22/17 1:09 PM) MCV [82.0-99.0 fL] 92.0 fL (01/22/17 1:09 PM) MCH [27.0-32.0 pg] 28.5 pg (01/22/17 1:09 PM) MCHC [32.0-36.0 31.0 gm/dL gm/dL] *LOW* (01/22/17 1:09 PM) RDW [11.5-14.5 %] 23.2 % *HI* (01/22/17 1:09 PM) Platelet [150-400 205 10*3/uL 10*3/uL] (01/22/17 1:09 PM) MPV [8.8-14.8 fL] 8.2 fL *LOW* (01/22/17 1:09 PM) Immature 0.7 % Granulocytes (01/22/17 1:09 PM) [0.0-1.0 %] Neutrophils [51-75 18 % %] *LOW* (01/22/17 1:09 PM) Lymphocytes [20-46 63 % %] *HI* (01/22/17 1:09 PM) Monocytes [4-11 %] 16 % *HI* (01/22/17 1:09 PM) Eosinophils [0-4 %] 3 % (01/22/17 1:09 PM) Basophils [0-2 %] 0 % (01/22/17 1:09 PM) Neutro Absolute 0.50 [1.90-7.00] *LOW* (01/22/17 1:09 PM) Lymph Absolute 1.75 [0.80-3.30] (01/22/17 1:09 PM) [place] Absolute 0.45 [0.30-1.00] (01/22/17 1:09 PM) Eos Absolute 0.07 [0.00-0.50] (01/22/17 1:09 PM) Baso Absolute 0.01 [0.00-0.20] (01/22/17 1:09 PM) Hypochrom Occasional *ABN* (01/22/17 1:09 PM) Microcyte Present *ABN* (01/22/17 1:09 PM) Macrocyte Present *ABN* (01/22/17 1:09 PM) Differential Scanned Slide (01/22/17 1:09 PM) Urinalysis Most recent to 1 oldest [Reference Range]: Leukocytes Urine Large Dipstick (01/22/17 12:37 PM) Nitrite Urine Negative Dipstick (01/22/17 12:37 PM) Urobilinogen Urine 0.2 mg/dl Dipstick (01/22/17 12:37 PM) Protein Urine Trace Dipstick (01/22/17 12:37 PM) pH Urine Dipstick 5.5 (01/22/17 12:37 PM) Ketones Urine Negative Dipstick (01/22/17 12:37 PM) Blood Urine Dipstick Moderate (01/22/17 12:37 PM) Bilirubin Urine Negative Dipstick (01/22/17 12:37 PM) Specific [place] 1.005 Urine Dipstick (01/22/17 12:37 PM) Glucose Urine Negative Dipstick (01/22/17 12:37 PM) Urine Color Urine Pale yellow Dipstick (01/22/17 12:37 PM) Urine Appearance Cloudy Urine Dipstick (01/22/17 12:37 PM) Immunizations Given and Recorded Vaccine Date Status Refusal Reason influenza virus vaccine, inactivated 01/17/17 Given Procedures Procedure Date Related Diagnosis Body Site Appendectomy delivery Cholecystectomy Hernia repair Tonsillectomy Social History Social History Type Response Smoking Status Never smoker entered on: 11/17/16 Assessment and Plan Extracted from: Title: Office Visit Note Author: Stefanie Peng CAUSTIC STRENGTH INSPECTOR Date: 01/22/17 1.Acute cystitis Leukocytes Urine Dipstick POCLarge Nitrite Urine Dipstick POCNegative Urobilinogen Urine Dipstick POC0.2 mg/dl Protein Urine Dipstick POCTrace pH Urine Dipstick POC5.5 Ketones Urine Dipstick POCNegative Blood Urine Dipstick POCModerate Bilirubin Urine Dipstick POCNegative Specific [place] Urine Dipstick POC1.005 Glucose Urine Dipstick POCNegative Urine Color Urine Dipstick POCPale yellow Urine Appearance Urine Dipstick POCCloudy Complete Blood Count Hgb:8.9 gm/dLLow (01/22/17 13:42:17) Hct:28.7 %Low (01/22/17 13:42:17) RBC:3.12Low (01/22/17 13:42:17) WBC:2.8 10*3/uLLow (01/22/17 13:42:17) Platelet: 205 10*3/uL (01/22/17 13:42:17) CBC similar to previous labs 01/17/17 cipro 500 BID x 7 sent to pharmacy. Discussed hygiene - wipe front to back, urinate before and after sex, do not hold urine for extended amount of time, fully empty bladder. push fluids.Diagnosis and treatment discussed. Patient advised to follow-up with PCP in 2-3 days if symptoms do not improve. If symptoms worsen at any time, patient will go to the nearest ER for further evaluation. Patient stable upon discharge, alert and orientated with no apparent distress, all questions answered, and indicated understanding of discharge instructions. Ordered: Office Visit Level 3 Est 63270 2.Uterine cancer impacting treatment. Ordered: Office Visit Level 3 Est 21448
--- OUTSIDE RECORDS SUMMARY | 2017-09-06 10:03 | XMS REPORT | Continuity of Care Document ---
Author Author [facility] Organization [facility] Address Unknown Phone Unavailable Allergies, Adverse Reactions, Alerts Substance Reaction Severity Status Substance Type Unknown Medications Medication Instructions Dosage Effective Dates (start - stop) Status Comments Drug Treatment Unknown Problems Condition Effective Dates (start - stop) Clinical Status No Known Problems Procedures Procedure Date Unknown Results Test Name Date and Time Measure Units Reference Range Abnormal Flag Comments Unknown Advance Directives Directive Yes / No Effective Date File Name Unknown Encounters Encounter Description Practice Location Reason(s) For Visit Diagnoses Date Provider Care Team Members [facility], [facility] [address], [place], [id number], [place] tel: [phone] [facility] Lucien Mcclure [address], [place], [id number], [place]. tel:[phone] Family History Family Member Diagnosis Age At Onset Unknown Immunizations Vaccine Date Status Comments Unknown Payers Payer name Insurance type Covered green party ID Authorization(s) Unknown Social History Type Description Quantity Date Captured Alcohol Use Details Unknown Caffeine Use Details Unknown Tobacco Use Status Unknown Smoking Status Unknown Vital Signs Date / Time: Height Weight BMI Pulse Rate Blood Pressure Temperature Respiratory Rate Body Surface Area Head Circumference BMI percentile Unknown Chief Complaint And Reason For Visit Unknown Chief Complaint And Reason For Visit Reason For Referral Reason For Referral Unknown Plan Of Care Date Type Action Status Unknown. Date Type Problem Goal Intervention Status Start Date Unknown. History Of Present Illness Encounter Date Complaint History Of Present Illness This patient has no known history of present illness Functional Status Encounter Date Functional Assessment Cognitive Assessment Unknown Medications Administered Medication Instructions Dosage Effective Dates (start - stop) Status Comments Drug Treatment Unknown Instructions Date Instruction Additional Information Unknown
--- OUTSIDE RECORDS SUMMARY | 2017-09-06 10:03 | XMS REPORT | Referral Summary ---
Author Author [facility] Organization [facility] Address Unknown Phone Unavailable Care Team Providers Care Greenskeeper Name Role Phone SavannahRamesh valdivia PCP Encounter [facility] Date(s): 02/02/17 - 02/02/17 [facility] [address] [place] [address]- Discharge Diagnosis: Eustachian tube dysfunction Discharge Diagnosis: Conductive hearing loss in right ear Discharge Disposition: 01-Home or Self Care Attending Physician: Vani Ordoñez Referring Physician: Horacio Montana MD Vital Signs No data available for this section Problem List Condition Effective Dates Status Health [...] smoker entered on: 11/17/16 Assessment and Plan No data available for this section
--- OUTSIDE RECORDS SUMMARY | 2017-09-06 10:03 | XMS REPORT | Referral Summary ---
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 Appendectomy delivery Cholecystectomy Hernia repair Tonsillectomy Social History Social History Type Response Smoking Status Never smoker entered on: 11/17/16 Assessment and Plan Extracted from: Title: Ambulatory Patient Education Author: Horacio Montana MD Date: 02/02/17 No follow up information was provided.
[2017-09-06] MEDS ORDERED: NS IV 1000 ML 1,000 ML IV ONE ×2 (10:05→12:48)
[2017-09-06 10:23] LABS: BASOPHILS # (AUTO) 0.1 10^3/uL (0.0-0.1); BASOPHILS % (AUTO) 0 % (0-10); EOSINOPHILS # (AUTO) 0.1 10^3/uL (0.0-0.3); EOSINOPHILS % (AUTO) 0 % (0-10); HEMATOCRIT 31 % (35-52); HEMOGLOBIN 9.9 G/DL (11.5-16.0); LYMPHOCYTES # (AUTO) 1.3 X 10^3 (1.0-4.0); LYMPHOCYTES % (AUTO) 3 % (12-44); MEAN CORPUSCULAR HEMOGLOBIN 26 PG (25-34); MEAN CORPUSCULAR HGB CONC 32 G/DL (32-36); MEAN CORPUSCULAR VOLUME 82 FL (80-99); MEAN PLATELET VOLUME 8.3 FL (7.4-10.4); MONOCYTES # (AUTO) 2.2 X 10^3 (0.0-1.0); MONOCYTES % (AUTO) 5 % (0-12); NEUTROPHILS # (AUTO) 36.7 X 10^3 (1.8-7.8); NEUTROPHILS % (AUTO) 91 % (42-75); PLATELET COUNT 836 10^3/uL (130-400); RED BLOOD COUNT 3.82 10^6/uL (4.35-5.85); RED CELL DISTRIBUTION WIDTH 21.7 % (10.0-14.5)
[2017-09-06 10:24] LABS: WHITE BLOOD COUNT 40.4 10^3/uL (4.3-11.0)
[2017-09-06] MEDS ORDERED: ACETAMINOPHEN 500 MG TAB (TYLENOL) PO ONE (10:30)
[2017-09-06 10:37] LABS: INR 1.1 (0.8-1.4); PROTHROMBIN TIME PATIENT 14.3 SEC (12.2-14.7)
[2017-09-06 10:41] LABS: ALANINE AMINOTRANSFERASE 11 U/L (0-55); ALBUMIN 1.9 GM/DL (3.2-4.5); ALKALINE PHOSPHATASE 152 U/L (40-136); BILIRUBIN,TOTAL 0.3 MG/DL (0.1-1.0); BUN/CREATININE RATIO 19; CALCIUM 7.6 MG/DL (8.5-10.1); CARBON DIOXIDE 22 MMOL/L (21-32); CHLORIDE 97 MMOL/L (98-107); CREATININE SERUM 0.69 MG/DL (0.60-1.30); GFR ESTIMATED > 60; GLUCOSE 121 MG/DL (70-105); POTASSIUM 3.7 MMOL/L (3.6-5.0); SODIUM 129 MMOL/L (135-145); TOTAL PROTEIN 4.5 GM/DL (6.4-8.2)
[2017-09-06 10:46] LABS: ANISOCYTOSIS MODERATE; HYPOCHROMASIA SLIGHT; LYMPHOCYTES % (MANUAL) 2 %; MICROCYTOSIS SLIGHT; MONOCYTES % (MANUAL) 1 %; NEUTROPHILS % (MANUAL) 97 %; TOXIC GRANULATION/VACUOLAZATIO 1+
[2017-09-06] MEDS ORDERED: CEFEPIME INJECTION 2,000 MG in NS (IVPB) 50 ML IV ONE (11:00)
--- NOTE | 2017-09-06 11:16 | Diagnostic Imaging Report ---
INDICATION: Shortness of breath and tachycardia PA and lateral chest Right IJ Port-A-Cath tip projects over the SVC. Heart size and pulmonary vascularity are normal. Lungs are clear. There are no effusions or pneumothoraces. IMPRESSION: No acute abnormalities in the chest. Dictated by: Dictated on workstation # [id number]
[2017-09-06] MEDS ORDERED: PIPERACILLIN SODIUM/TAZOBACTAM 4.5 GM in D5W 100 ML IVPB 100 ML IV ONE (11:30)
[2017-09-06 13:07] LABS: CLARITY,URINE SLIGHTLY CLOUDY; COLOR,URINE YELLOW; GLUCOSE, URINE (UA) NEGATIVE (NEGATIVE); KETONES,URINE NEGATIVE (NEGATIVE); LEUKOCYTE ESTERASE ,URINE 3+ (NEGATIVE); NITRITE,URINE NEGATIVE (NEGATIVE); PH,URINE 5 (5-9); PROTEIN,URINE 2+ (NEGATIVE); UROBILINOGEN,URINE 1 MG/DL (NORMAL)
--- NOTE | 2017-09-06 13:19 | ED General ---
General Chief Complaint: General Problems/Pain Stated Complaint: SOB,NEEDS FLUIDS Nursing Triage Note: PT TO ROOM 5 PT CO OF DEHYDRATION, UTERINE CA, PT HAS CATHETER PRESENT IN R SIDE ABD THAT SHE DRAINS FLUID FROM ABD, PT STATES VERY WEAK, PALE IN COLOR, STATES HAD FEVER LAST PM. PT DENIES PAIN Nursing Sepsis Screen: No Definite Risk Source of Information: Patient Exam Limitations: No Limitations History of Present Illness Date Seen by Provider: Sep 06, 2017 Time Seen by Provider: 10:05 Initial Comments This 62-year-old woman presents to the emergency room with complaints of tachycardia and fever. Her temperature at home last night was 100.9. She has a heart rate in the 140s upon arrival. She reports her pulse was 131 last night with a blood pressure 110/63. She has a nonoperable uterine sarcoma. She underwent chemotherapy from November 2016 through May 2017. She had a couple doses of chemotherapy after that but it was discontinued because it had no effect on the tumor. She has some chronic dysphagia associated with the cancer. She reports being admitted at [facility] in [place] last week for fevers. She reports pain cultures revealed no source of infection. She has a peritoneal drain and routinely drains ascites. 2 L were drained yesterday. Her ascites is bloody. She denies any increase in abdominal pain. Patient's oncologist is Dr. Medina. Allergies and Home Medications Allergies Coded Allergies: prochlorperazine (Verified Allergy, Unknown, 09/06/17) propoxyphene (Verified Adverse Reaction, Intermediate, NAUSEA, 09/23/16) Home Medications Acetaminophen with Codeine 1 Each Tablet, 1 EACH PO Q4H PRN for PAIN-SEVERE Prescribed by: SCOOBY VEGA on 09/23/16 113 Amoxicillin/Potassium Clav 1 Each Tablet, 1 EACH PO BID Prescribed by: JUDITH CAIN on 04/11/171955 Ibuprofen 600 Mg Tablet, 600 MG PO Q6H Prescribed by: SCOOBY VEGA on 09/23/161132 Ofloxacin 10 Ml Drops, 10 DROPS OT BID Prescribed by: JUDITH CAIN on 04/11/171942 Oxycodone HCl/Acetaminophen 1 Each Tablet, 1 EACH PO Q4H PRN for PAIN-MODERATE Prescribed by: JUDITH CAIN on 04/11/171955 Pramipexole 0.125 Mg Tablet, 0.125 MG PO HS, (Reported) Pseudoephedrine HCl 30 Mg Tablet, 60 MG PO DAILY, (Reported) Sumatriptan Succinate 100 Mg Tablet, 100 MG PO PRN, (Reported) Patient Home Medication List Home Medication List Reviewed: Yes Review of Systems Constitutional: see HPI EENTM: see HPI Respiratory: cough (mild) Cardiovascular: see HPI Gastrointestinal: no symptoms reported Genitourinary: no symptoms reported : No Musculoskeletal: no symptoms reported Skin: no symptoms reported Psychiatric/Neurological: No Symptoms Reported Hematologic/Lymphatic: See HPI Immunological/Allergic: see HPI Past Jyzhyxq-Hmhaav-Wvtruw Hx Patient Social History Alcohol Use: Denies Use Number of Drinks Today: Alcohol Beverage of Choice: Wine Recreational Drug Use: No Smoking Status: Never a Smoker Recent Foreign Travel: No Contact w/Someone Who Travel: No Recent Infectious Disease Expo: No Recent Hopitalizations: Yes (IN FOR CANCER TREATMENT) Seasonal Allergies Seasonal Allergies: No Past Medical History Surgeries: Yes (UTERINE CA SURGERIES, PORT) Abdominal (attempted tumor resection, peritoneal drain placement), Appendectomy , Section, Gallbladder, Tonsillectomy Respiratory: No Cardiac: No Neurological: Yes Headaches /Migraines : No Reproductive Disorders: Yes (uterine cancer) Female Reproductive Disorders: Menstrual Problems [employer] History: Menopausal Sexually Transmitted Disease: No HIV/AIDS: No Genitourinary: No Gastrointestinal: Yes (chronic ascites) Musculoskeletal: No Endocrine: No HEENT: No Cancer: Yes (WITH METS) Uterine What Type of Treatment Did You: Chemotherapy, Radiation, Surgical Intervention NO FURTHER TREATMENT AT THIS X Psychosocial: No Physical Exam-Suspected Sepsis Physical Exam Vital Signs Vital Signs - First Documented 09/06/17 09:50 Temp 97.9 Pulse 141 Resp 18 B/P (MAP) 100/60 (73) Pulse Ox 96 O2 Delivery Room Air Capillary Refill : Less Than 3 Seconds Blood Pressure Mean: 73 General Appearance: No Apparent Distress, WD/WN HEENT: PERRL/EOMI, Normal ENT Inspection, Pharynx Normal Neck: Normal Inspection Respiratory: Lungs Clear, Normal Breath Sounds, No Accessory Muscle Use, No Respiratory Distress Cardiovascular: No Edema, No Murmur, Tachycardia Gastrointestinal: Normal Bowel Sounds, Soft, Distended, Tenderness (mild generalized) Extremity: Normal Capillary Refill, Normal Inspection, No Pedal Edema Neurologic/Psychiatric: Alert, Oriented x3, No Motor/Sensory Deficits, Normal Mood/Affect, public safety dispatcher II-XII Norm as Tested Skin: normal color, warm/dry Focused Exam Lactate Level 09/06/17 10:05: Lactic Acid Level 1.54 Lactic Acid Level Progress/Results/Core Measures Suspected Sepsis Recent Fever Within 48 Hours: No Infection Criteria Present: None New/Unexplained Altered Menta: No Sepsis Screen: No Definite Risk SIRS Temperature:97.9 Pulse: 141 Respiratory Rate: 18 Laboratory Tests 09/06/17 10:05: White Blood Count 40.4*H Blood Pressure 100 /60 Mean: 73 09/06/17 10:05: Lactic Acid Level 1.54 Laboratory Tests 09/06/17 10:05: Creatinine 0.69, INR Comment 1.1, Platelet Count 836H, Total Bilirubin 0.3 Results/Orders Lab Results Laboratory Tests Test 09/06/17 10:05 09/06/17 12:40 Range/Units White Blood Count 40.4 *H 4.3-11.0 10^3/uL Red Blood Count 3.82 L 4.35-5.85 10^6/uL Hemoglobin 9.9 L 11.5-16.0 G/DL Hematocrit 31 L 35-52 % Mean Corpuscular Volume 82 80-99 FL Mean Corpuscular Hemoglobin 26 25-34 PG Mean Corpuscular Hemoglobin Concent 32 32-36 G/DL Red Cell Distribution Width 21.7 H 10.0-14.5 % Platelet Count 836 H 130-400 10^3/uL Mean Platelet Volume 8.3 7.4-10.4 FL Neutrophils (%) (Auto) 91 H 42-75 % Lymphocytes (%) (Auto) 3 L 12-44 % Monocytes (%) (Auto) 5 0-12 % Eosinophils (%) (Auto) 0 0-10 % Basophils (%) (Auto) 0 0-10 % Neutrophils # (Auto) 36.7 H 1.8-7.8 X 10^3 Lymphocytes # (Auto) 1.3 1.0-4.0 X 10^3 Monocytes # (Auto) 2.2 H 0.0-1.0 X 10^3 Eosinophils # (Auto) 0.1 0.0-0.3 10^3/uL Basophils # (Auto) 0.1 0.0-0.1 10^3/uL Neutrophils % (Manual) 97 % Lymphocytes % (Manual) 2 % Monocytes % (Manual) 1 % Toxic Granulation 1+ Hypochromasia SLIGHT Anisocytosis MODERATE Microcytosis SLIGHT Prothrombin Time 14.3 12.2-14.7 SEC INR Comment 1.1 0.8-1.4 Activated Partial Thromboplast Time 34 24-35 SEC Sodium Level 129 L 135-145 MMOL/L Potassium Level 3.7 3.6-5.0 MMOL/L Chloride Level 97 L 98-107 MMOL/L Carbon Dioxide Level 22 21-32 MMOL/L Anion Gap 10 5-14 MMOL/L Blood Urea Nitrogen 13 7-18 MG/DL Creatinine 0.69 0.60-1.30 MG/DL Estimat Glomerular Filtration Rate > 60 BUN/Creatinine Ratio 19 Glucose Level 121 H 70-105 MG/DL Lactic Acid Level 1.54 0.50-2.00 MMOL/L Calcium Level 7.6 L 8.5-10.1 MG/DL Total Bilirubin 0.3 0.1-1.0 MG/DL Aspartate Amino Transf (AST/SGOT) 21 5-34 U/L Alanine Aminotransferase (ALT/SGPT) 11 0-55 U/L Alkaline Phosphatase 152 H 40-136 U/L Total Protein 4.5 L 6.4-8.2 GM/DL Albumin 1.9 L 3.2-4.5 GM/DL Urine Color YELLOW Urine Clarity SLIGHTLY CLOUDY Urine pH 5 5-9 Urine Specific [place] 1.020 1.016-1.022 Urine Protein 2+ H NEGATIVE Urine Glucose (UA) NEGATIVE NEGATIVE Urine Ketones NEGATIVE NEGATIVE Urine Nitrite NEGATIVE NEGATIVE Urine Bilirubin 1+ H NEGATIVE Urine Urobilinogen 1 NORMAL MG/DL Urine Leukocyte Esterase 3+ H NEGATIVE Urine RBC (Auto) 1+ H NEGATIVE Urine RBC 0-2 /HPF Urine WBC 25-50 H /HPF Urine Squamous Epithelial Cells 25-50 H /HPF Urine Crystals NONE /LPF Urine Bacteria FEW H /HPF Urine Casts NONE /LPF Urine Mucus SMALL H /LPF Urine Culture Indicated YES Micro Results Microbiology 09/06/17 Gram Stain - Final, Resulted 09/06/17 Body Fluid Culture - Preliminary, Resulted 09/06/17 Influenza Types A,B Antigen (ESE) - Final, Complete 09/06/17 Urine Culture - Preliminary, Resulted Sent To [facility] My Orders Orders - MITALI LUBIN MD Cbc With Automated Diff (09/06/17 10:05) Comprehensive Metabolic Panel (09/06/17 10:05) Lactic Acid Analyzer (09/06/17 10:05) Blood Culture (09/06/17 10:05) Ua Culture If Indicated (09/06/17 10:05) Protime With Inr (09/06/17 10:05) Partial Thromboplastin Time (09/06/17 10:05) O2 (09/06/17 10:05) Saline Lock/Iv-Start (09/06/17 10:05) Saline Lock/Iv-Start (09/06/17 10:05) Vital Signs Adult Sepsis Patie Q1H (09/06/17 10:05) Remove Rings In Anticipation O (09/06/17 10:05) Saline Lock/Iv-Start (09/06/17 10:05) Ns Iv 1000 Ml (Sodium Chloride 0.9%) (09/06/17 10:05) Influenza A And B Antigens (09/06/17 10:05) Manual Differential (09/06/17 10:05) Acetaminophen Tablet (Tylenol Tablet) (09/06/17 10:30) Ekg Tracing (09/06/17 10:25) Monitor-Rhythm Ecg Trace Only (09/06/17 10:25) Body Fluid Culture (09/06/17 10:25) Chest Pa/Lat (2 View) (09/06/17 10:50) Cefepime Injection (Maxipime Injection) (09/06/17 11:00) Piperacillin Sodium/Tazobactam (Zosyn Vi (09/06/17 11:30) General/Regular (09/06/17 Lunch) Ns Iv 1000 Ml (Sodium Chloride 0.9%) (09/06/17 12:48) Urine Culture (09/06/17 12:40) Medications Given in ED Vital Signs/I&O 09/07/17 00:00 Intake Total 2100 ml Balance 2100 ml Capillary Refill : Less Than 3 Seconds Blood Pressure Mean: 73 Progress Note #1: Progress Note Patient was seen and examined and septic workup was pursued. A normal saline bolus of 2 L was infused. Blood cultures were obtained. Chest x-ray revealed no acute abnormalities. A specimen from the peritoneal drain was sent for culture as well. Empiric antibiotic therapy was started with Zosyn. Tylenol was given for treatment of the tachycardia as well. Progress Note #2: Time: 14:20 Progress Note Patient appears to be septic from urinary tract infection. She received Zosyn 4.5 g IV along with her 2 L of IV fluids. Heart rate is in the one teens at present. Patient had a headache and considered taking her triptan but headache resolved without treatment. I discussed patient's case with Dr. Medina's nurse practitioner, Latasha. She states that there are no curative treatment options for her cancer at this point. We reviewed options including transfer to critical access hospital for aggressive care versus less aggressive measures. At this time patient wishes to be as aggressive as possible. She would like to treat the sepsis as aggressively as possible even though there are no curative options for her cancer. She has family life events she would like to experience if at all possible in the near future. Since patient wishes to be aggressive with her care, it is important that she be transferred to her primary oncology team as her cancer case is complicated by ascites and severe blood dyscrasias in the presence of sepsis. Patient was accepted for transfer at [facility] [place] the care of Dr. Medina. Progress Note #3: Progress Note Length of stay was prolonged and transfer was delayed due to EMS availability. ECG Initial ECG Impression Date: Sep 06, 2017 Initial ECG Impression Time: 10:21 Initial ECG Rate: 140 Initial ECG Rhythm: S.Tach Comment Sinus tachycardia with no ST elevation or depression. No abnormal intervals or axis deviation. Diagnostic Imaging Diagonstic Imaging: Xray Plain Films/CT/US/NM/MRI: chest Comments Chest x-ray viewed by me and report reviewed. See report below: NAME: JAMIR PATTERSON [facility] REC#: [id number] PT STATUS: REG ER : 1955 PHYSICIAN: MITALI LUBIN MD ADMIT DATE: 09/06/17/ER Draft Date of Exam:09/06/17 CHEST PA/LAT (2 VIEW) INDICATION: Shortness of breath and tachycardia PA and lateral chest Right IJ Port-A-Cath tip projects over the SVC. Heart size and pulmonary vascularity are normal. Lungs are clear. There are no effusions or pneumothoraces. IMPRESSION: No acute abnormalities in the chest. Dictated on workstation # [id number] Dict: 09/06/17 1111 Trans: 09/06/17 1115 [facility] [id number] Interpreted by: PRASANNA SILVA MD Departure Impression Primary Impression: Sepsis Qualified Codes: A41.9 - Sepsis, unspecified organism Additional Impressions: Sinus tachycardia Urinary tract infection Qualified Codes: N39.0 - Urinary tract infection, site not specified Cancer, uterine Qualified Codes: C55 - Malignant neoplasm of uterus, part unspecified Hyponatremia Disposition: XFER SHT-TRM HOSP Condition: Stable Transfer Time Spoke to Accepting Phy: 14:10 Transfer Progress Notes Case was reviewed with Latasha Doss APRN on Dr. Medina's oncology team. Patient was accepted by the oncology team for transfer. Transport was secured by local EMS. Transfer Time: 17:16 Transfer Facility: [place], [place] Method of Transfer: EMS Departure-Patient Inst. Referrals: NO,LOCAL PHYSICIAN (PCP/Family) Primary Care Physician MITALI LUBIN MD Sep 06, 2017 13:19
[2017-09-06 13:23] LABS: BACTERIA,URINE FEW /HPF; BILIRUBIN,URINE 1+ (NEGATIVE); RBC,URINE 0-2 /HPF; SQUAMOUS EPITHELIAL CELL,UR 25-50 /HPF; WBC,URINE 25-50 /HPF
[2017-09-06 17:16] VITALS: BP 106/65
== END 2017-09-06 17:16 | disposition short-term general hospital (02) ==
LOC: EDUNIT# 09:43 → ER 09:45
DX: A41.9 Sepsis, unspecified organism (principal); N39.0 Urinary tract infection, site not specified; C55 Malignant neoplasm of uterus, part unspecified; C79.9 Secondary malignant neoplasm of unspecified site; R13.19 Other dysphagia; R00.0 Tachycardia, unspecified; E87.1 Hypo-osmolality and hyponatremia; G43.909 Migraine, unspecified, not intractable, without status migrainosus; Z90.49 Acquired absence of other specified parts of digestive tract; Z87.59 Personal history of other complications of pregnancy, childbirth and the puerperium; Z90.89 Acquired absence of other organs; Z88.8 Allergy status to other drugs, medicaments and biological substances; Z92.21 Personal history of antineoplastic chemotherapy; Z92.3 Personal history of irradiation
CPT/HCPCS: 36415; 71046; 80053; 81000; 83605; 85007; 85027; 85610; 85730; 87040; 87070; 87088; 87186; 87205; 87804; 93005; 93041; 96361; 96365